=== PATIENT | male | born 1990 | race African-American/Black ===

== ENCOUNTER 2018-07-14 15:24 | Emergency (ER) | payer OTHER ==
[2018-07-14 15:34] VITALS: BP 149/74
[2018-07-14] MEDS ORDERED: SILVER SULFADIAZINE 1% CREAM 25 GM TP ONE (15:52)
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
== END 2018-07-14 16:14 | disposition home or self-care (01) ==
LOC: ER 15:24
DX: T22.212A Burn of second degree of left forearm, initial encounter (principal); T22.211A Burn of second degree of right forearm, initial encounter; X19.XXXA Contact with other heat and hot substances, initial encounter; Y99.0 Civilian activity done for income or pay
CPT/HCPCS: 99283